=== PATIENT | female | born 1955 | race Caucasian/White ===

== ENCOUNTER 2018-05-22 11:34 | Emergency (ER) | payer BC, MEDICAID ==
[~2018-05-22] VITALS: Ht 160 cm; Wt 57.0 kg
[~2018-05-22 11:34] MED LIST: HYDR-3307 PO
[2018-05-22 11:43] VITALS: BP 125/78
[2018-05-22] MEDS ORDERED: KETOROLAC 30 MG/1 ML ONE (12:14)
[2018-05-22] MEDS ORDERED: KETOROLAC 30 MG/1 ML IM ONE (12:30)
== END 2018-05-22 13:57 | disposition home or self-care (01) ==
LOC: ED 12:58
DX: S92.354A Nondisplaced fracture of fifth metatarsal bone, right foot, initial encounter for closed fracture (principal); S92.344A Nondisplaced fracture of fourth metatarsal bone, right foot, initial encounter for closed fracture; M79.671 Pain in right foot; X58.XXXA Exposure to other specified factors, initial encounter; Y93.89 Activity, other specified; Y92.89 Other specified places as the place of occurrence of the external cause; Y99.8 Other external cause status
CPT/HCPCS: 73590; 73610; 73630; 93971; 96372; 99284; J1885